=== PATIENT | male | born 1995 | race Caucasian/White ===

== ENCOUNTER 2024-04-03 06:10 | Emergency (ER) | payer BC ==
[~2024-04-03] VITALS: Ht 182.8 cm; Wt 72.6 kg
[~2024-04-03 06:10] MED LIST: AMOXICILLIN500 MG PO; PREDNISONE20 MG PO; TYLENOL W/ CODEI5 ML PO
[2024-04-03] MEDS ORDERED: diphenhydrAMINE hydrochloride 25 MG CAP PO ONE (07:15)
[2024-04-03] MEDS ORDERED: CETIRIZINE HYDR10 MG PO (07:38)
== END 2024-04-03 07:47 | disposition home or self-care (01) ==
LOC: ED 06:10
DX: F41.9 Anxiety disorder, unspecified (principal); T63.481A Toxic effect of venom of other arthropod, accidental (unintentional), initial encounter; Z91.030 Bee allergy status; Z98.890 Other specified postprocedural states; Y92.89 Other specified places as the place of occurrence of the external cause